=== PATIENT | female | born 1985 | race Two or more races ===

== ENCOUNTER 2017-03-05 13:43 | Emergency (ER) | payer OTHER ==
[2017-03-05 13:50] VITALS: BP 135/58; PULSE 71; TEMP 98.1; BMI 26.9
--- NOTE | 2017-03-05 14:23 | PDOC ---
History of Present Illness - General Chief Complaint: Hematuria Stated Complaint: BLOOD IN URINE (20 WKS ) Time Seen by Provider: 03/05/17 14:05 History Source: Patient - History of Present Illness Timing/Duration: reports: other (yesterday) Past History - Past Medical History Allergies/Adverse Reactions: Allergies Allergy/AdvReac Type Severity Reaction Status Date / Time No Known Allergies Allergy Verified 03/05/17 13:47 Home Medications: Ambulatory Orders Nitrofurantoin Monohyd/M-Cryst [Macrobid -] 100 mg PO BID #14 capsule 03/05/17 Asthma: No Cancer: No Cardiac Disorders: No Diabetes: No HTN: No Seizures: No Thyroid Disease: No Other medical history: none - Reproductive History (#): 3 Para: 2 Spontaneous : 0 - Immunization History Immunization Up to Date: Yes - Suicide/Smoking/Psychosocial Hx Smoking History: Never smoked Hx Alcohol Use: No Drug/Substance Use Hx: No Substance Use Type: None Hx Substance Use Treatment: No Review of Systems - Review of Systems Constitutional: No: Fever ABD/GI: No: Nausea, Vomiting, Abdominal cramping : Yes: Dysuria, Hematuria. No: Flank Pain *Physical Exam - Vital Signs Last Vital Signs Temp Pulse Resp BP Pulse Ox 98.1 F 71 20 135/58 100 03/05/17 13:47 03/05/17 13:47 03/05/17 13:47 03/05/17 13:47 03/05/17 13:47 - Physical Exam General Appearance: Yes: Appropriately Dressed. No: Apparent Distress HEENT: positive: Normal Voice Neck: positive: Supple Respiratory/Chest: negative: Respiratory Distress Gastrointestinal/Abdominal: positive: Soft. negative: Tender Musculoskeletal: negative: CVA Tenderness Integumentary: positive: Dry, Warm Neurologic: positive: Fully Oriented, Alert, Normal Mood/Affect Medical Decision Making - Medical Decision Making 03/05/17 14:18 31 yo F, (1 spon AB), ~20 weeks by dates and prior US per pt, renal stone during prior , here w/ dysuria w/ hematuria since yesterday. Pt states she passed what looked like "stone " this am and that her dysuria appeared to have improved after that. No abd/flank pain, n/v/f/c or vaginal bleeding. Pt states she was scheduled for an anatomy ultrasound today, but when she arrived at facility, she was told that there was no authorization for procedure. See exam 20 week gestation w/ dysuria/hematuria and possible passing of stone this am No flank pain, n/v/f/c Stable w/ benign abd w/ no CVAT -ua/cx 03/05/17 14:24 03/05/17 14:27 Call patient's INVESTMENT ACCOUNTING CLERK, Dr Sibley's who wants me to treat for potential uti w/ macrobid. Aware of possible passage of stone this am. Initially had me call Dr. Mcnulty to arrange an anatomy ultrasound upstairs. Unfortunately patient's insurance, [employer], is no longer accepted as per secretary of police. Dr. Sibley informed and recommending US in ED 03/05/17 14:29 03/05/17 14:45 03/05/17 15:15 US w/ +IUP w/ FHR w/ no abnormal findings. +Bld on ua, no LE or Nit. Will dc w/ macrobid as d/w INVESTMENT ACCOUNTING CLERK and have pt f/u 03/05/17 15:18 *DC/Admit/Observation/Transfer Diagnosis at time of Disposition: Dysuria - Discharge Dispostion Disposition: HOME Condition at time of disposition: Good - Prescriptions Prescriptions: Nitrofurantoin Monohyd/M-Cryst [Macrobid -] 100 mg PO BID #14 capsule - Patient Instructions Printed Discharge Instructions: Urinary Tract Infection Additional Instructions: Take antibiotics as directed and follow up with Dr Sibley Return for flank pain, vomiting or fever
[2017-03-05 14:38] LABS: URINE APPEARANCE CLEAR; URINE BILIRUBIN NEGATIVE (NEGATIVE); URINE BLOOD 1+ (NEGATIVE); URINE COLOR STRAW; URINE GLUCOSE (UA) NEGATIVE (NEGATIVE); URINE KETONE NEGATIVE (NEGATIVE); URINE LEUK ESTERASE NEGATIVE (NEGATIVE); URINE NITRITE NEGATIVE (NEGATIVE); URINE PROTEIN NEGATIVE (NEGATIVE); URINE UROBILINOGEN NEGATIVE mg/dL (0.2-1.0)
[2017-03-05 14:39] LABS: URINE MUCUS RARE; URINE RBC <1 /hpf (0-3); URINE WBC 1 /hpf (3-5)
== END 2017-03-05 15:20 | disposition home or self-care (01) ==
LOC: JERFT 13:43
DX: O23.32 Infections of other parts of urinary tract in pregnancy, second trimester (principal); Z3A.20 20 weeks gestation of pregnancy
CPT/HCPCS: 76815-TC; 81003; 81015; 87086; 99281-25

== ENCOUNTER 2017-07-16 14:52 | Emergency (ER) | payer OTHER ==
[2017-07-16 13:03] LABS: HEMATOCRIT 34.4 % (32.4-45.2); HEMOGLOBIN 11.5 GM/dL (10.7-15.3); MCH 29.8 pg (25.7-33.7); MCHC 33.3 g/dl (32.0-36.0); MEAN CELL VOLUME 89.5 fl (80-96); MEAN PLT VOLUME 9.4 fl (7.5-11.1); RBC 3.85 M/mm3 (3.60-5.2); RDW 14.3 % (11.6-15.6); WHITE BLOOD COUNT 5.4 K/mm3 (4.0-10.0)
[2017-07-16 13:13] LABS: INR 1.02 (0.82-1.09); PROTHROMBIN TIME (PATIENT) 11.5 SEC (9.98-11.88)
[2017-07-16 13:15] LABS: ACTIVATED PTT 29.1 SECONDS (26.9-34.4)
[2017-07-16 13:26] LABS: ALBUMIN 2.7 g/dl (3.4-5.0); ALK PHOS 206 U/L (45-117); ANION GAP 6 (8-16); BLOOD UREA NITROGEN 8 mg/dL (7-18); CALCIUM 7.8 mg/dL (8.5-10.1); CHLORIDE 104 mmol/L (98-107); CO2 24 mmol/L (21-32); CREATININE 0.7 mg/dL (0.55-1.02); GLUCOSE,RANDOM 102 mg/dL (74-106); POTASSIUM 3.9 mmol/L (3.5-5.1); SGOT/AST 22 U/L (15-37); SGPT/ALT 23 U/L (12-78); SODIUM 134 mmol/L (136-145); TOT PROT 5.9 g/dl (6.4-8.2)
[2017-07-16 13:29] LABS: BILIRUBIN,TOTAL 0.3 mg/dL (0.2-1.0)
[2017-07-16 14:22] LABS: ACANTHOCYTES 0; ANISOCYTOSIS 0; HELMET CELLS 0; HOWELL-JOLLY BODIES 0; MACROCYTOSIS 0; OVALOCYTE 0; PLATELET ESTIMATE DECREASED; ROULEAU 0; SICKELED CELLS 0; TARGET CELLS 0; TEAR DROP CELLS 0; TOXIC GRANULATION 0
[2017-07-16 14:23] LABS: PLATELET COUNT 96 K/MM3 (134-434)
[~2017-07-16 14:52] MED LIST: ACETAMINOPHEN 1000 MG/100 ML VIAL (NON FORMULARY) IVPB ONE; ACETAMINOPHEN INJECTION 100 ML IVPB ONE; SODIUM CHLORIDE 1,000 ML IV SCH
[2017-07-16 15:13] VITALS: BP 96/67; PULSE 111; TEMP 98.5
--- NOTE | 2017-07-16 15:18 | PDOC ---
Rapid Medical Evaluation Chief Complaint: Cold Symptoms Time Seen by Provider: 07/16/17 15:14 Medical Evaluation: Allergies Allergy/AdvReac Type Severity Reaction Status Date / Time No Known Allergies Allergy Verified 07/16/17 12:08 Vital Signs Temp Pulse Resp BP Pulse Ox 98.5 F 111 H 20 96/67 97 07/16/17 15:11 07/16/17 15:11 07/16/17 15:11 07/16/17 15:11 07/16/17 15:11 07/16/17 15:16 pt with c/o: cough, 39 weeks , influenza a + up on l&d Pt on exam : lcta, vss pt ordered for : none pt to proceed to the ed Discharge Disposition - Diagnosis Influenza A - Discharge Dispostion Condition at time of disposition: Stable Last Admission D/C Date: 03/22/12 - Referrals - Patient Instructions Additional Instructions: HOME DISCHARGE INSTRUCTIONS: REST AT HOME, DRINK AT LEAST 8-10 GLASSES OF WATER TO STAY HYDRATED, TAKE TYLENOL FOR FEVER DIRECTED. RETURN TO LABOR AND DELIVERY IF YOU ARE HAVING REGULAR CONTRACTIONS, YOU BREAK YOUR WATER, YOU HAVE PERIOD LIKE VAGINAL BLEEDING OR YOU ARE NOT FEELING YOUR BABY MOVE. IF YOU HAVE ANY QUESTIONS OR CONCERNS YOU CAN CONTACT YOUR CARE DOCTOR OR LABOR AND DELIVERY AT . - Post Discharge Activity
--- NOTE | 2017-07-16 16:30 | PDOC ---
History of Present Illness - General Chief Complaint: Cold Symptoms Stated Complaint: +influenza 38 weeks Time Seen by Provider: 07/16/17 15:14 History Source: Patient - History of Present Illness Initial Comments: 07/16/17 16:35 The 31-year-old female who was sent to the ER by her filter tender status post testing positive for influenza A. Her filter tender was concerned that she may need an x-ray to rule out a pneumonia. Patient has been experiencing sore throat, fevers, body aches and chills for the past 3 days. Denies nausea or vomiting. No abdominal complaints. Patient states she's feels normal movements. No vaginal discharge or bleeding is present. Patient was evaluated in labor and delivery prior to ER presentation. Past History - Past Medical History Allergies/Adverse Reactions: Allergies Allergy/AdvReac Type Severity Reaction Status Date / Time No Known Allergies Allergy Verified 07/16/17 12:08 Home Medications: Ambulatory Orders Oseltamivir Phosphate [Tamiflu -] 75 mg PO BID #10 capsule 07/16/17 Vit 108/Iron/Folic AC [ One Tablet] 1 tab PO DAILY 07/16/17 Asthma: No Cancer: No Cardiac Disorders: No COPD: No Diabetes: No HTN: No Seizures: No Thyroid Disease: No - Reproductive History (#): 3 Para: 2 Spontaneous : 0 - Immunization History Immunization Up to Date: Yes - Suicide/Smoking/Psychosocial Hx Smoking History: Never smoked Hx Alcohol Use: No Drug/Substance Use Hx: No Substance Use Type: None Hx Substance Use Treatment: No Review of Systems - Review of Systems Able to Perform ROS?: Yes Is the patient limited Albanian proficient: No Constitutional: Yes: See HPI *Physical Exam - Vital Signs Last Vital Signs Temp Pulse Resp BP Pulse Ox 98.5 F 111 H 20 96/67 97 07/16/17 15:11 07/16/17 15:11 07/16/17 15:11 07/16/17 15:11 07/16/17 15:11 - Physical Exam General Appearance: Yes: Appropriately Dressed. No: Apparent Distress HEENT: positive: SATURNINO, TMs Normal, Pharyngeal Erythema, Nasal Congestion. negative: Tonsillar Exudate, Tonsillar Erythema, Sinus Tenderness Neck: positive: Trachea midline, Supple Respiratory/Chest: positive: Lungs Clear, Normal Breath Sounds. negative: Respiratory Distress, Accessory Muscle Use Cardiovascular: positive: Regular Rhythm, Regular Rate. negative: Murmur Gastrointestinal/Abdominal: positive: Normal Bowel Sounds Musculoskeletal: positive: Normal Inspection. negative: CVA Tenderness Extremity: positive: Normal Inspection, Normal Range of Motion Integumentary: positive: Normal Color, Dry, Warm Neurologic: positive: Fully Oriented, Alert, Normal Mood/Affect, Normal Response , Motor Strength 10/19 ED Treatment Course - LABORATORY CBC & Chemistry Diagram: 07/16/17 12:45 07/16/17 12:45 - ADDITIONAL ORDERS Additional order review: Laboratory Results 07/16/17 07/16/17 07/16/17 12:45 12:45 12:45 PT with INR 11.50 INR 1.02 PTT (Actin FS) 29.1 Sodium 134 L Potassium 3.9 Chloride 104 Carbon Dioxide 24 Anion Gap 6 L BUN 8 Creatinine 0.7 Creat Clearance w eGFR > 60 Random Glucose 102 Calcium 7.8 L Total Bilirubin 0.3 D AST 22 ALT 23 Alkaline Phosphatase 206 H Total Protein 5.9 L Albumin 2.7 L Blood Type O NEGATIVE Antibody Screen Negative 07/16/17 11:45 Influenza Types A,B Antigen (LORI) - Final Nasopharyngeal Swab - Final 07/16/17 12:45 RBC 3.85 MCV 89.5 MCHC 33.3 RDW 14.3 MPV 9.4 D Neutrophils % No Result Required. Lymphocytes % No Result Required. - Medications Given in the ED: ED Medications Discontinued Medications Generic Name Dose Route Start Last Admin Trade Name Freq PRN Reason Stop Dose Admin Acetaminophen 1,000 mg 07/16/17 12:05 07/16/17 12:15 Ofirmev Injection - IVPB 07/16/17 12:06 1,000 mg ONCE ONE Administration Medical Decision Making - Medical Decision Making 07/16/17 16:37 A/P: 31-year-old who was positive for influenza a. Lungs clear to auscultation bilaterally. No coughing. Will defer imaging at this time as her physical exam is not consistent with pneumonia. Rx for Tamiflu 75 mg twice a day Finished 1 L of normal saline initiated by labor and delivery Discharge home *DC/Admit/Observation/Transfer Diagnosis at time of Disposition: Influenza A - Discharge Dispostion Disposition: HOME Condition at time of disposition: Stable Admit: No - Prescriptions Prescriptions: Oseltamivir Phosphate [Tamiflu -] 75 mg PO BID #10 capsule - Referrals - Patient Instructions Additional Instructions: Rest, drink lots of fluids: Teas, water, soups, Pedialyte Saltwater gargles Steamy showers/seem to face break up mucus Avoid contact with others until fevers and cough resolved Lots of handwashing and good hygiene Continue [id number] medications for symptomatic relief Tylenol or Motrin for fever and pain Take Tamiflu 75mg twice a day for next 5 days. Followup with private physician in one to 2 days as needed Return to emergency department for worsened symptoms, fevers, dehydration HOME DISCHARGE INSTRUCTIONS: REST AT HOME, DRINK AT LEAST 8-10 GLASSES OF WATER TO STAY HYDRATED, TAKE TYLENOL FOR FEVER DIRECTED. RETURN TO LABOR AND DELIVERY IF YOU ARE HAVING REGULAR CONTRACTIONS, YOU BREAK YOUR WATER, YOU HAVE PERIOD LIKE VAGINAL BLEEDING OR YOU ARE NOT FEELING YOUR BABY MOVE. IF YOU HAVE ANY QUESTIONS OR CONCERNS YOU CAN CONTACT YOUR CARE DOCTOR OR LABOR AND DELIVERY AT . - Post Discharge Activity
== END 2017-07-16 17:06 | disposition home or self-care (01) ==
LOC: JER 14:52 → JERFT 14:52 → JER 14:52 → EDSTATUS 14:53 → JERFT 17:06
DX: O09.899 Supervision of other high risk pregnancies, unspecified trimester (principal)
CPT/HCPCS: 36415; 59025; 80053; 85025; 85610; 85730; 86593; 86850; 86900; 86901; 87804; 99281-25

== ENCOUNTER 2017-07-21 12:07 | Emergency (ER) | payer OTHER ==
[2017-07-21 12:19] VITALS: TEMP 98.1; BMI 30.2
--- NOTE | 2017-07-21 13:17 | PDOC ---
History of Present Illness - General Chief Complaint: Itching Stated Complaint: ITCHING TO BODY @ 40 WKS PREG Time Seen by Provider: 07/21/17 12:34 - History of Present Illness Initial Comments: 07/21/17 13:09 CHIEF COMPLAINT: itching, 40 wks HISTORY OF PRESENT ILLNESS: 31 yo F 40 wk female presents to fast track with itching to generalized itching x 3 days. PAtient states she was recently treated with Tamiflu which she completed two days ago. She denies any fever, chills, nausea, vomiting, or abdominal pain. She reports that she was directed to "get blood tests" by her OBGYN MD Quezada but "the lab was closed today." PAST MEDICAL HISTORY: Denies past medical history FAMILY HISTORY: Denies SOCIAL HISTORY: Denies tobacco, alcohol, illicit drug use. SURGICAL HISTORY: Denies ALLERGIES: No known drug allergies REVIEW OF SYSTEMS General/Constitutional: Denies fever or chills. Denies weakness, weight change. HEENT: Denies change in vision. Denies ear pain or discharge. Denies sore throat. Cardiovascular: Denies chest pain or shortness of breath. Respiratory: Denies cough, wheezing, or hemoptysis. Gastrointestinal: Denies nausea, vomiting, diarrhea or constipation. Denies rectal bleeding. Genitourinary: Denies dysuria, frequency, or change in urination. Musculoskeletal: Denies joint or muscle swelling or pain. Denies neck or back pain. Skin and breasts: Itching. Denies rash or easy bruising. PHYSICAL EXAM General Appearance: Well-appearing, appropriately dressed. No apparent distress. HEENT: EOMI, PERRLA, normal ENT inspection, normal voice, TMs normal, pharynx normal. No conjunctival pallor. No photophobia, scleral icterus. Neck: Supple. Trachea midline. No tenderness, rigidity, carotid bruit, stridor , lymphadenopathy, or thyromegaly. Respiratory/Chest: Lungs CTAB. No shortness of breath, chest tenderness, respiratory distress, accessory muscle use. No crackles, rales, rhonchi, stridor , wheezing, dullness Cardiovascular: RRR. S1, S2. No JVD, murmur, bradycardia, tachycardia. Vascular Pulses: Dorsalis-Pedis (R): 2+, Dorsalis-Pedis (L): 2+ Gastrointestinal/Abdominal: Normal bowel sounds. Abdomen soft, non-distended. No tenderness or rebound tenderness. No organomegaly, pulsatile mass, guarding , hernia, hepatomegaly, splenomegaly. Lymphatic: No adenopathy, tenderness. Musculoskeletal/Extremities: Normal inspection. FROM of all extremities, normal capillary refill. Pelvis Stable. No CVA tenderness. No tenderness to extremities, pedal edema, swelling, erythema or deformity. Integumentary: Appropriate color, dry, warm. No cyanosis, erythema, jaundice or rash Neurologic: coiled coil inspector II-XII intact. Fully oriented, alert. Appropriate mood/affect. Motor strength 5/5. No appreciable EOM palsy, facial droop or sensory deficit. Past History - Past Medical History Allergies/Adverse Reactions: Allergies Allergy/AdvReac Type Severity Reaction Status Date / Time No Known Allergies Allergy Verified 07/21/17 12:16 Home Medications: Ambulatory Orders NK [No Known Home Medication] 07/21/17 Asthma: No Cancer: No Cardiac Disorders: No COPD: No Diabetes: No HTN: No Seizures: No Thyroid Disease: No - Reproductive History (#): 3 Para: 2 Spontaneous : 0 - Immunization History Immunization Up to Date: Yes - Suicide/Smoking/Psychosocial Hx Smoking History: Never smoked Hx Alcohol Use: No Drug/Substance Use Hx: No Substance Use Type: None Hx Substance Use Treatment: No *Physical Exam - Vital Signs Last Vital Signs Temp Pulse Resp BP Pulse Ox 98.1 F 75 18 111/66 97 07/21/17 12:16 07/21/17 12:16 07/21/17 12:16 07/21/17 12:16 07/21/17 12:16 Medical Decision Making - Medical Decision Making 07/21/17 13:17 31 yo F 40 wk female presents to fast track with itching to generalized itching x 3 days. Discussed with patient that she should get outpatient labs for continued monitoring by Dr. Quezada and of signs and symptoms for return to ER. Patient verbalized understanding. Patient is to be transferred to L&D for evaluation prior to discharge. *DC/Admit/Observation/Transfer - Referrals Referrals: Malcolm Pascual MD [Primary Care Provider] - - Patient Instructions - Post Discharge Activity
[2017-07-21 14:07] VITALS: BP 120/80; PULSE 80
[2017-07-21 15:10] LABS: BASO % 0.2 % (0-2.0); EOS % 0.3 % (0-4.5); HEMATOCRIT 39.1 % (32.4-45.2); MCH 29.7 pg (25.7-33.7); MCHC 33.2 g/dl (32.0-36.0); MEAN CELL VOLUME 89.3 fl (80-96); MEAN PLT VOLUME 9.5 fl (7.5-11.1); NEUT % 62.5 % (42.8-82.8); RBC 4.38 M/mm3 (3.60-5.2); RDW 14.1 % (11.6-15.6); WHITE BLOOD COUNT 5.7 K/mm3 (4.0-10.0)
[2017-07-21 15:32] LABS: ALBUMIN 2.7 g/dl (3.4-5.0); BILIRUBIN,DIRECT 0.2 mg/dL (0.0-0.2); BILIRUBIN,TOTAL 0.4 mg/dL (0.2-1.0)
[2017-07-21 15:33] LABS: PLATELET COUNT 119 K/MM3 (134-434)
== END 2017-07-21 15:45 | disposition home or self-care (01) ==
LOC: JER 12:07 → JERFT 12:07 → JER 15:45
DX: O26.893 Other specified pregnancy related conditions, third trimester (principal); L29.8 Other pruritus; Z3A.40 40 weeks gestation of pregnancy
CPT/HCPCS: 36415; 80076; 82542; 85025; 99281-25

== ENCOUNTER 2017-07-25 02:50 | Inpatient (IN) | payer OTHER ==
[2017-07-25 03:19] LABS: BASO % 0.9 % (0-2.0); EOS % 0.6 % (0-4.5); HEMATOCRIT 39.5 % (32.4-45.2); HEMOGLOBIN 13.4 GM/dL (10.7-15.3); LYMPH % 23.1 % (8-40); MCHC 33.9 g/dl (32.0-36.0); MEAN CELL VOLUME 88.4 fl (80-96); MONO % 7.2 % (3.8-10.2); NEUT % 68.2 % (42.8-82.8); RBC 4.46 M/mm3 (3.60-5.2); RDW 13.8 % (11.6-15.6); WHITE BLOOD COUNT 9.8 K/mm3 (4.0-10.0)
[2017-07-25] MEDS ORDERED: BUTORPHANOL TARTRATE 1 MG/ML VIAL ONE ×2 (03:25)
[2017-07-25] MEDS ORDERED: PROMETHAZINE HCL 25 MG/1 ML VIAL ONE (03:26)
[2017-07-25] MEDS ORDERED: PROMETHAZINE HCL 25 MG/1 ML VIAL IVPB ONE (03:30)
[2017-07-25] MEDS ORDERED: DEXTROSE 5%-LACTATED RINGERS 1,000 ML IV SCH (03:30)
[2017-07-25] MEDS ORDERED: BUTORPHANOL TARTRATE 1 MG/ML VIAL IVPB ONE (03:30)
[2017-07-25 03:32] LABS: INR 0.89 (0.82-1.09); PROTHROMBIN TIME (PATIENT) 10.1 SEC (9.98-11.88)
[2017-07-25 03:34] LABS: ACTIVATED PTT 28.5 SECONDS (26.9-34.4)
[2017-07-25 03:55] LABS: ANION GAP 11 (8-16); BLOOD UREA NITROGEN 12 mg/dL (7-18); CHLORIDE 106 mmol/L (98-107); CO2 22 mmol/L (21-32); CREATININE 0.9 mg/dL (0.55-1.02); GLUCOSE,RANDOM 106 mg/dL (74-106); POTASSIUM 3.8 mmol/L (3.5-5.1); SODIUM 139 mmol/L (136-145)
[2017-07-25 04:09] LABS: PLATELET ESTIMATE NORMAL
[2017-07-25 04:24] LABS: PLATELET COUNT 143 K/MM3 (134-434)
[2017-07-25 05:08] VITALS: BMI 30.7
[2017-07-25] MEDS ORDERED: OXYTOCIN 20 UNITS in 0.9% NS 20 UNIT/1,000 ML INFUS.BAG IV ONE (05:50)
[2017-07-25] MEDS ORDERED: LIDOCAINE HCL 1% PRESERVATIVE FREE - 30ML VIAL ONE (05:52)
--- NOTE | 2017-07-25 06:58 | HP ---
Past Medical History - Admission History of Present Illness: 31 yo @ 40 06/23 wks, EDC 07/24/2017 complicated by: 1. Flu diagnosed 07/16, s/p tamiflu 2. Rh Negative, Rhogam given 05/16/17 Patient presents with chief complaint of contractions which began at 0000. She reports movement, denies leakage of fluid, vaginal bleeding. She was examined and found to be 6 cm. History Source: Patient Limitations to Obtaining History: No Limitations - Past Medical History Cardiovascular: No: HTN Pulmonary: No: Asthma Gastrointestinal: No: GERD ...: 4 ...Para: 2 ...Term: 2 ...: 0 ...Spon : 1 ...Induced : 0 ...Multiple Gestation: 0 ...LMP: 10/18/16 ... Weeks Gestation by Dates: 40.0 ...EDC by Dates: 07/25/17 ...EDC by Sono: 07/24/17 Heme/Onc: No: Anemia - Past Surgical History Past Surgical History: Yes: None Hx Myomectomy: No Hx Transabdominal Cerclage: No - Smoking History Smoking history: Never smoked Have you smoked in the past 12 months: No - Alcohol/Substance Use Hx Alcohol Use: No Home Medications - Allergies Allergies/Adverse Reactions: Allergies Allergy/AdvReac Type Severity Reaction Status Date / Time No Known Allergies Allergy Verified 07/21/17 12:16 - Home Medications Home Medications: Ambulatory Orders Vitamins (Sjr) - 1 tab PO DAILY 07/25/17 Family Disease History - Family Disease History Family History: Denies Review of Systems - Review of Systems Constitutional: reports: No Symptoms Neck: reports: No Symptoms Cardiovascular: reports: No Symptoms Respiratory: reports: No Symptoms Gastrointestinal: reports: No Symptoms Breasts: reports: No Symptoms Reported Musculoskeletal: reports: No Symptoms Integumentary: reports: No Symptoms Neurological: reports: No Symptoms Hematology/Lymphatic: reports: No Symptoms Psychiatric: reports: No Symptoms Physical Exam - Maternity Vital Signs: Vital Signs Temperature 97.5 F L 07/25/17 05:00 Pulse Rate 74 07/25/17 05:00 Respiratory Rate 18 07/25/17 05:00 Blood Pressure 129/75 07/25/17 05:00 O2 Sat by Pulse Oximetry (%) Constitutional: Yes: Well Nourished, No Distress, Calm Cardiovascular: Yes: Regular Rate and Rhythm Lungs: Clear to auscultation - Abdominal Exam/OB Number of Fetuses: Single Contractions: Yes Regularity: Regular Intensity: Mod/Strong Monitor Mode: External Category: I Accelerations: Non-Uniform Decelerations: None - Vaginal Exam/OB Dilatation (cm): 6 Station: -4 - Physical Exam Edema: No Psychiatric: Yes: Alert, Oriented - Labs Lab Results: CBC, BMP 07/25/17 02:08 07/25/17 02:08 Hemorrhage Risk Assessment - Risk Factors Medium Risk Factors: Yes: None High Risk Factors: Yes: None Risk Score: 1 Risk Level: Medium Risk Assessment/Plan 31 yo @ 40 1/7 wks active labor 1. admit to L&D 2. Consents reviewed and signed 3. Routine labs collected and sent, recent PLT 113, will repeat 4. GBS negative 5. Will offer pain medication upon patient's request
[2017-07-25] MEDS: IBUPROFEN 600 MG TABLET (FP) PO PRN ×2 (07:00→17:07)
[2017-07-25] MEDS ORDERED: METHYLERGONOVINE MALEATE 0.2 MG/1 ML AMP IM PRN (07:01)
[2017-07-25] MEDS ORDERED: BENZOCAINE 28 GM HEMORRHOIDAL OINTMENT TP PRN (07:01)
[2017-07-25] MEDS ORDERED: WITCH HAZEL 50% (TUCKS) 40 PAD/JAR PAD TP PRN (07:01)
[2017-07-25] MEDS ORDERED: BENZOCAINE 20% 57 GM BOTTLE TP PRN (07:01)
[2017-07-25] MEDS ORDERED: oxyCODONE HCL 5 MG TABLET PO PRN (07:01)
[2017-07-25] MEDS ORDERED: BISACODYL 10 MG SUPP.RECT RC PRN (07:01)
--- NOTE | 2017-07-25 07:01 | PN ---
Delivery - Delivery Vaginal Delivery: No Problems Episiotomy/Laceration: Midline, Periurethral Extnsion/lac, 1st degree EBL (cc): 200 Delivery, Single - Stages of Labor Date 1st Stage Initiatied: 07/25/17 Time 1st Stage Initiated: 00:00 Date 2nd Stage Initiated: 07/25/17 Time 2nd Stage Initiated: 06:10 Date of Delivery: 07/25/17 Time of Delivery: 06:42 Date Placenta Delivered: 07/25/17 Time Placenta Delivered: 06:53 Placenta: Yes: Spontaneous - Condition of Gender: Male Position: Left, OA Total Hours ROM (Hrs/Mins): 1 hour 12 minutes - 1 Minute Total Score: 9 5 Minutes Total Score: 9 - Feeding Plan Initial Plan: Exclusive throughout hospitalization Remarks - Remarks Remarks: Patient progressed to fully dilated and at 0610 via delivered a viable male in BERNIE position, APGARs 9,9. Weight and length unknown at this time. Head delivered spontaneously, nuchal cord noted and shoulders and body delivered through without difficulty. Infant with spontaneous cry and placed on mother's abdomen. Nose and mouth was bulb suctioned. Cord was clamped and cut. Perineum and vagina examined, first degree periurethral and perineal lacerations were noted and repaired in the usual fashion. Placenta was delivered spontaneously and intact. 20 units of pitocin in 1 L IVF was given. All counts correct x 2. Mother and stable in LDR. EBL 200cc.
[2017-07-25] MEDS ORDERED: OXYTOCIN 20 UNITS in 0.9% NS 20 UNIT/1,000 ML INFUS.BAG IV SCH (07:15)
[2017-07-25] MEDS: ACETAMINOPHEN 325 MG TABLET (FP) PO PRN ×2 (09:47→17:08)
[2017-07-25] MEDS ORDERED: TUBERCULIN PPD 5 TU/0.1ML SYRINGE (IN PATIENT USE ONLY) ID ONE (10:00)
--- NOTE | 2017-07-26 07:50 | PN ---
Progress Note (short form) - Note Progress Note: ppd 1 doing well, no c/o , voids ok CBC, BMP 07/25/17 02:08 07/25/17 02:08 Last Vital Signs Temp Pulse Resp BP Pulse Ox 98.5 F 76 20 117/70 98 07/26/17 05:58 07/26/17 05:58 07/26/17 05:58 07/26/17 05:58 07/25/17 07:55 abdomen soft , non tender , no cva uterus firm, non tender lochia mild no calf tenderness plan ambulate , cbc
[2017-07-26 08:15] LABS: HEMATOCRIT 34.3 % (32.4-45.2); HEMOGLOBIN 11.5 GM/dL (10.7-15.3); MCHC 33.5 g/dl (32.0-36.0); MEAN CELL VOLUME 89.4 fl (80-96); MEAN PLT VOLUME 10.1 fl (7.5-11.1); PLATELET COUNT 138 K/MM3 (134-434); RBC 3.83 M/mm3 (3.60-5.2); RDW 14.3 % (11.6-15.6); WHITE BLOOD COUNT 10.5 K/mm3 (4.0-10.0)
[2017-07-26 12:03] LABS: PLATELET ESTIMATE ADEQUATE
[2017-07-26] MEDS: ACETAMINOPHEN 325 MG TABLET (FP) PO PRN (13:12)
[2017-07-26] MEDS: IBUPROFEN 600 MG TABLET (FP) PO PRN (13:13)
[2017-07-26] MEDS ORDERED: DIPHTH,PERTUSS(ACELL),TET 0.5 ML DISP.SYRIN IM ONE (17:30)
[2017-07-26] MEDS ORDERED: SENNOSIDES/DOCUSATE COMBO (SENNA PLUS) TABLET (UD) PO PRN (22:00)
--- NOTE | 2017-07-27 08:49 | DS ---
Physical Exam-CLINICAL RESEARCH NURSE COORDINATOR Vital Signs: Vital Signs Temperature 98.7 F 07/26/17 21:53 Pulse Rate 68 07/26/17 21:53 Respiratory Rate 20 07/26/17 21:53 Blood Pressure 129/79 07/26/17 21:53 O2 Sat by Pulse Oximetry (%) 98 07/25/17 07:55 Constitutional: Yes: Well Nourished, No Distress, Calm Eyes: Yes: WNL, Conjunctiva Clear, EOM Intact HENT: Yes: WNL, Atraumatic, Normocephalic Neck: Yes: WNL, Supple, Trachea Midline Cardiovascular: Yes: WNL, Regular Rate and Rhythm Respiratory: Yes: WNL, Regular, CTA Bilaterally Gastrointestinal: Yes: WNL ...Rectal Exam: Yes: WNL Renal/: Yes: WNL ....Post : Yes: Uterus firm, Uterus non-tender, Slight lochia rubra Breast(s): Yes: WNL Musculoskeletal: Yes: WNL Extremities: Yes: WNL Edema: No Integumentary: Yes: WNL Neurological: Yes: WNL, Alert, Oriented ...Motor Strength: WNL Psychiatric: Yes: WNL, Alert, Oriented Labs: CBC, BMP 07/26/17 07:50 07/25/17 02:08 Delivery - Delivery Vaginal Delivery: No Problems, Spontaneous Type of Anesthesia: Local Episiotomy/Laceration: Midline, Periurethral Extnsion/lac, 1st degree EBL (cc): 200 Delivery, Single - Stages of Labor Date 1st Stage Initiatied: 07/25/17 Time 1st Stage Initiated: 00:00 Date 2nd Stage Initiated: 07/25/17 Time 2nd Stage Initiated: 06:10 Date of Delivery: 07/25/17 Time of Delivery: 06:42 Time Placenta Delivered: 06:53 Placenta: Yes: Spontaneous - Condition of Infant Photo Technician/Managed Care Provider Present: No Gender: Male Weight: 7 lb 14 oz Position: Left, OA Total Hours ROM (Hrs/Mins): 1 hour 12 minutes - 1 Minute Total Score: 9 5 Minutes Total Score: 9 - [place] Feeding Plan Initial Plan: Exclusive throughout hospitalization Discharge Summary Reason For Visit: ADMIT LABOR Procedures: Principal: Condition: Good - Instructions Diet, Activity, Other Instructions: regular diet, follow up office 4 weeks, if fever, heavy vaginal bleeding call MD Referrals: Franki Torrez SUPER [Crane Service Technician] - Disposition: HOME - Home Medications Comprehensive Discharge Medication List: Ambulatory Orders Ibuprofen [Motrin -] 600 mg PO QID #28 tablet 07/25/17 Vitamins (Sjr) - 1 tab PO DAILY 07/25/17
[2017-07-27 14:53] VITALS: BP 120/75; PULSE 75; TEMP 98.8
== END 2017-07-27 12:30 | disposition home or self-care (01) | DRG 560 ==
LOC: JLDR 02:50 → J3W 09:27
PROVIDERS: ADMIT Obstetrics & Gynecology; ATTEND Obstetrics & Gynecology
PROC: 10E0XZZ Delivery of Products of Conception, External Approach (ICD-10-PCS; principal; 2017-07-25)
PROC: 0W8NXZZ Division of Female Perineum, External Approach (ICD-10-PCS; 2017-07-25)
PROC: 0HQ9XZZ Repair Perineum Skin, External Approach (ICD-10-PCS; 2017-07-25)
PROC: 3E0334Z Introduction of Serum, Toxoid and Vaccine into Peripheral Vein, Percutaneous Approach (ICD-10-PCS; 2017-07-25)
DX: O70.0 First degree perineal laceration during delivery (principal); Z3A.40 40 weeks gestation of pregnancy; O26.893 Other specified pregnancy related conditions, third trimester; Z67.91 Unspecified blood type, Rh negative; Z37.0 Single live birth
CPT/HCPCS: 36415; 59409; 80048; 85025; 85461; 85610; 85730; 86593; 86850; 86900; 86901; 86999; 90715